=== PATIENT | male | born 1985 | race Caucasian/White ===

== ENCOUNTER 2018-03-06 16:01 | Emergency (ER) | payer MEDICARE, MEDICAID ==
--- NOTE | 2018-03-06 20:45 | ED ---
GI/ HPI - HPI Summary HPI Summary: Patient is a 32 y/o M w/ c/o rectal bleeding for the past three days. Blood is described as bright red. He reports PMHx of diabetes, HTN, HLD. Patient does not believe he is on any blood thinners. He reports that he has cardiac stents. PMHx of hemorrhoids is denied. On triage, pain is denied, nothing is noted to aggravate/alleviate Sx. Home medications and allergies reviewed. - History of Current Complaint Chief Complaint: EDRectalPain Time Seen by Provider: 03/06/18 20:00 Stated Complaint: RECTAL BLEED Hx Obtained From: Patient Onset/Duration: Started Days Ago - 3 days ago, Still Present Timing: Lasting Days - 3 days ago Current Severity: None - pain denied on triage Pain Intensity: 0 Associated Signs and Symptoms: Positive: Other: - rectal bleeding Aggravating Factor(s): Nothing Alleviating Factor(s): Nothing - Allergy/Home Medications Allergies/Adverse Reactions: Allergies Allergy/AdvReac Type Severity Reaction Status Date / Time No Known Allergies Allergy Verified 06/10/12 15:13 PMH/Surg Hx/FS Hx/Imm Hx Endocrine/Hematology History: Reports: Hx Diabetes Cardiovascular History: Reports: Hx Hypertension, Other Cardiovascular Problems/ Disorders - HLD Infectious Disease History: No Infectious Disease History: Denies: Traveled Outside the [place] in Last 30 Days - Family History Known Family History: Negative: Blood Disorder - Social History Alcohol Use: None Substance Use Type: Reports: None Review of Systems Negative: Fever - on vitals, temp is 97.9 F Positive: other - rectal bleeding All Other Systems Reviewed And Are Negative: Yes Physical Exam - Summary Physical Exam Summary: VITAL SIGNS: Reviewed. GENERAL: Patient is a well-developed and morbidly obese male who is lying comfortable in the stretcher. Patient is not in any acute respiratory distress. HEAD AND FACE: No signs of trauma. No ecchymosis, hematomas or skull depressions. No sinus tenderness. EYES: PERRLA, EOMI x 2, No injected conjunctiva, no nystagmus. EARS: Hearing grossly intact. Ear canals and tympanic membranes are within normal limits. MOUTH: Oropharynx within normal limits. NECK: Supple, trachea is midline, no adenopathy, no JVD, no carotid bruit, no c- spine tenderness, neck with full ROM. CHEST: Symmetric, no tenderness at palpation LUNGS: Clear to auscultation bilaterally. No wheezing or crackles. CVS: Regular rate and rhythm, S1 and S2 present, no murmurs or gallops appreciated. ABDOMEN: Soft, non-tender. No signs of distention. No rebound no guarding, and no masses palpated. Bowel sounds are normal. EXTREMITIES: FROM in all major joints, no edema, no cyanosis or clubbing. NEURO: Alert and oriented x 3. No acute neurological deficits. Speech is normal and follows commands. SKIN: Dry and warm RECTAL EXAM: no masses, no tenderness, normal rectal tone, tinge of blood Triage Information Reviewed: Yes Vital Signs On Initial Exam: Initial Vitals Temp Pulse Resp BP Pulse Ox 97.9 F 86 16 134/95 95 03/06/18 16:30 03/06/18 16:30 03/06/18 16:30 03/06/18 16:30 03/06/18 16:30 Vital Signs Reviewed: Yes Diagnostics - Vital Signs Vital Signs Temp Pulse Resp BP Pulse Ox 03/06/18 20:00 86 94 03/06/18 19:55 86 127/87 96 03/06/18 19:09 97.9 F 83 18 129/78 97 03/06/18 16:30 97.9 F 86 16 134/95 95 - Laboratory Result Diagrams: 03/06/18 20:39 03/06/18 20:39 Lab Statement: Any lab studies that have been ordered have been reviewed, and results considered in the medical decision making process. Re-Evaluation - Re-Evaluation First Eval Re-Evaluation Time: 22:40 Comment: Discussed results of labs with patient. Patient will be discharged to home, follow up care plan was discussed. He understands and is agreeable with this plan. GIGU Course/Dx - Course Assessment/Plan: Patient is a 32 y/o M w/ c/o rectal bleeding for the past three days. Blood is described as bright red. He reports PMHx of diabetes, HTN, HLD. Patient does not believe he is on any blood thinners. He reports that he has cardiac stents. PMHx of hemorrhoids is denied. Pain is denied. Patient is morbidly obese. RECTAL EXAM: no masses, no tenderness, normal rectal tone, tinge of blood. No other abnormal findings on PE. Blood was obtained. H&H was normal, patient is hemodynamically stable. Patient was discharged to home and instructed to follow up with manufacturing we[facility]. Rectal bleeding is most likely secondary to hemorrhoids, but patient is referred to manufacturing [facility] to rule out other possible causes. He understands and is agreeable with this plan. Dx of rectal bleeding. - Diagnoses Provider Diagnoses: Rectal bleeding Discharge - Sign-Out/Discharge Documenting (check all that apply): Patient Departure - discharge - Discharge Plan Condition: Stable Disposition: HOME Patient Education Materials: Rectal Bleeding (ED) Referrals: Ham Tilley MD [Primary Care Provider] - Bharat Garcia MD [Medical Doctor] - 2 Days Additional Instructions: RETURN TO THE EMERGENCY DEPARTMENT FOR CHANGING OR WORSENING SYMPTOMS. FOLLOW UP WITH INFANTRY OFFICER UP IN 1-2 DAYS. - Attestation Statements Document Initiated by Scribe: Yes Documenting Scribe: Jaquan Arguelles Provider For Whom Aimeee is Documenting (Include Credential): Ben Rosenberg MD Scribe Attestation: Jaquan Avila , scribed for Ben Rosenberg MD on 03/07/18 at 0023.
[2018-03-06 20:48] LABS: ABS Basophils 0 10^3/ul (0-0.2); ABS Eosinophils 0.2 10^3/ul (0-0.6); ABS Monocytes 0.6 10^3/ul (0-0.8); ABS Nucleated RBC 0 10^3/ul; Eosinophil % 2.2 % (0-6); Hematocrit 42 % (42-52); Hemoglobin 14.8 g/dl (14.0-18.0); Lymphocyte % 34.5 % (25-47); Mean Corpuscular HGB Conc 35 g/dl (31-36); Mean Corpuscular Hemoglobin 28 pg (27-31); Mean Corpuscular Volume 81 fL (80-94); Mean Platelet Volume 7.5 um3 (7.4-10.4); Nucleated Red Blood Cells % 0; Platelet Count 266 10^3/ul (150-450); Red Blood Count 5.25 10^6/ul (4.00-5.40); Red Cell Distribution Width 13 % (10.5-15); White Blood Count 8.8 10^3/ul (3.5-10.8)
[2018-03-06 21:07] LABS: EGFR Non-African American 96.6 (>60)
[2018-03-06 21:09] LABS: INR 0.88 (0.77-1.02)
[2018-03-06 23:05] VITALS: BP 135/90
== END 2018-03-06 23:06 | disposition home or self-care (01) ==
LOC: ED 16:01
DX: K62.5 Hemorrhage of anus and rectum (principal); I10 Essential (primary) hypertension; Z95.5 Presence of coronary angioplasty implant and graft
CPT/HCPCS: 36415; 80053; 85025; 85610; 85730; 86850; 86900; 86901; 99283

== ENCOUNTER 2022-11-06 14:19 | Inpatient (IN) ==
[2022-11-06] MEDS ORDERED: NS 0.9% 1000 ml BAG 1,000 ML IV ONE (14:27)
[2022-11-06 16:10] LABS: Hematocrit 46.1 % (38-53); Hemoglobin 14.1 g/dL (13.2-16.3); Mean Corpuscular Hemoglobin 23.7 pg (27-33); Mean Corpuscular Hgb Conc 30.6 g/dL (31-36); Mean Corpuscular Volume 77.5 fL (80-97); Mean Platelet Volume 7.7 fL (7.5-11.2); Platelet Count 397 10^3/uL (150-450); Red Blood Count 5.95 10^6/uL (4.06-5.63); Red Cell Distribution Width 16.8 % (12-17)
[2022-11-06 16:21] LABS: ABS Basophils 0.1 10^3/uL (0.0-0.1); ABS Lymphocytes 1.6 10^3/uL (1.0-4.8); ABS Monocytes 1.4 10^3/uL (0.0-1.1); ABS Nucleated RBC 0.01 10^3/ul; Lymphocyte % 7.2 %
[2022-11-06 16:24] LABS: High Sens Troponin Baseline 5 pg/mL (<20)
[2022-11-06 16:34] LABS: ALT 11 U/L (7-52); AST 16 U/L (13-39); Albumin/Globulin Ratio 1.9 (1-3); Alkaline Phosphatase 90 U/L (35-149); Blood Urea Nitrogen 28 mg/dL (6-24); C Reactive Protein 9.49 mg/L (<8.01); Calcium 9.3 mg/dL (8.6-10.3); Chloride 93 mmol/L (101-111); Creatinine, Serum 1.55 mg/dL (0.67-1.17); Globulin 2.7 g/dL (2-4); Glucose 282 mg/dL (70-100); Lipase 37 U/L (11.0-82.0); Magnesium 2.3 mg/dL (1.9-2.7); Potassium 5.3 mmol/L (3.5-5.0); Sodium 129 mmol/L (135-145); Total Protein 7.7 g/dL (6.4-8.9)
[2022-11-06 16:37] LABS: CO2 Carbon Dioxide < 7 mmol/L (22-32)
[2022-11-06 17:01] LABS: PO2 Arterial 131 mmHg (80-100)
[2022-11-06 17:02] LABS: PCO2 Arterial <20 mmHg (35-45)
[2022-11-06] MEDS ORDERED: Dextrose 50% Syringe 50 ml 25 GM/50 ML SYRINGE IV PUSH PRN (17:16)
[2022-11-06] MEDS ORDERED: NORMOSOL-R pH 7.4 1000 mL BAG 1,000 ML IV ONE (17:16)
[2022-11-06 17:23] LABS: Acetaminophen < 15 mcg/mL; Salicylate < 2.50 mg/dL (<30)
[2022-11-06 17:34] LABS: High Sensitivity Troponin 1 Hr 4 pg/mL (<20)
[2022-11-06] MEDS ORDERED: Insulin Infusion 100unit/100mL 100 UNIT/100 ML BAG IV SCH (18:00)
[2022-11-06] MEDS ORDERED: D5NS 0.9% 1000 ml BAG 1,000 ML IV SCH (18:00)
[2022-11-06] MEDS ORDERED: D5W 1/2 NS 1000 ml BAG 1,000 ML IV SCH ×2 (18:00→20:00)
[2022-11-06 18:30] LABS: Phosphorus 6.7 mg/dL (2.5-5.0)
[2022-11-06 18:46] LABS: TSH Ultra Thyroid Stim Horm 0.88 mcIU/mL (0.34-5.60)
[2022-11-06] MEDS ORDERED: NORMOSOL-R pH 7.4 1000 mL BAG 1,000 ML IV SCH (19:00)
[2022-11-06] MEDS: D5W 1/2 NS 1000 ml BAG 1,000 ML IV SCH (19:34)
[2022-11-06 19:49] LABS: Blood Urea Nitrogen 28 mg/dL (6-24); Calcium 7.2 mg/dL (8.6-10.3); Chloride 98 mmol/L (101-111); Creatinine, Serum 1.23 mg/dL (0.67-1.17); Glucose 215 mg/dL (70-100); Magnesium 2.4 mg/dL (1.9-2.7); Phosphorus 4.9 mg/dL (2.5-5.0); Potassium 4.9 mmol/L (3.5-5.0); Sodium 132 mmol/L (135-145); eGFR CKD-EPI 76.6 (>60)
[2022-11-06 19:51] LABS: CO2 Carbon Dioxide < 7 mmol/L (22-32)
[2022-11-06 19:56] LABS: High Sensitivity Troponin 3 Hr 3 pg/mL (<20)
[2022-11-06 20:17] LABS: PO2 Arterial 157 mmHg (80-100)
[2022-11-06 20:18] LABS: PCO2 Arterial <20 mmHg (35-45)
[2022-11-06 21:56] LABS: HIV 4th Generation Nonreactive (Nonreactive)
[2022-11-06 22:32] LABS: Urine Appearance Clear; Urine Bilirubin Negative (Negative); Urine Blood 2+ (Negative); Urine Color Yellow; Urine Glucose 3+(>=500 mg/dL) (Negative); Urine Ketones 2+ (Negative); Urine Nitrite Negative (Negative); Urine Protein 2+(100 mg/dL) (Negative); Urine Specific Gravity 1.017 (1.002-1.030); Urine Urobilinogen Negative (Negative)
[2022-11-06 22:40] LABS: Urine Bacteria Absent (Absent); Urine Red Blood Cell Trace(0-2/hpf) (Absent); Urine Squamous Epithelial Cell Present (Absent); Urine White Blood Cell Trace(0-5/hpf) (Absent)
[2022-11-06 22:48] LABS: Urine Benzodiazepine Screen None Detected (None Detect); Urine Cannabinoids Screen None Detected (None Detect); Urine Opiates Screen None Detected (None Detect)
[2022-11-07] MEDS: Insulin Infusion 100unit/100mL 100 UNIT/100 ML BAG IV SCH ×2 (00:20→13:59)
[2022-11-07] MEDS: D5W 1/2 NS 1000 ml BAG 1,000 ML IV SCH ×2 (00:48→05:52)
[2022-11-07 00:52] LABS: PO2 Arterial 105 mmHg (80-100)
[2022-11-07 00:53] LABS: PCO2 Arterial <20 mmHg (35-45)
[2022-11-07 01:14] LABS: Blood Urea Nitrogen 33 mg/dL (6-24); Calcium 8.3 mg/dL (8.6-10.3); Chloride 100 mmol/L (101-111); Creatinine, Serum 1.29 mg/dL (0.67-1.17); Glucose 181 mg/dL (70-100); Sodium 128 mmol/L (135-145); eGFR CKD-EPI 72.3 (>60)
[2022-11-07 01:19] LABS: Anion Gap 20 mmol/L (2-16); CO2 Carbon Dioxide 8 mmol/L (22-32)
[2022-11-07] MEDS ORDERED: NS 0.9% 1000 ml BAG 1,000 ML IV ONE ×2 (02:04→03:41)
[2022-11-07 02:11] LABS: Magnesium 1.7 mg/dL (1.9-2.7); Potassium Redraw 3.2 mmol/L (3.5-5.0)
[2022-11-07 02:17] LABS: Phosphorus 1.9 mg/dL (2.5-5.0)
[2022-11-07] MEDS ORDERED: Magnesium Sulfate 2 gm BAG 2 GM/50 ML BAG IVPB ONE (02:48)
[2022-11-07] MEDS ORDERED: Potassium & Sodium Phos 250 mg = 1 PACKET PO ONE (02:49)
[2022-11-07] MEDS: KCL 20 MEQ/100 ML IVPREMIX 20 MEQ/100 ML BAG IV SCH ×4 (03:32→22:14)
[2022-11-07 04:03] LABS: PCO2 Arterial 21 mmHg (35-45); PO2 Arterial 107 mmHg (80-100)
[2022-11-07 04:58] LABS: Hematocrit 34.6 % (38-53); Hemoglobin 11.1 g/dL (13.2-16.3); Mean Corpuscular Hemoglobin 24.2 pg (27-33); Mean Corpuscular Volume 75.5 fL (80-97); Mean Platelet Volume 7.1 fL (7.5-11.2); Platelet Count 232 10^3/uL (150-450); Red Blood Count 4.58 10^6/uL (4.06-5.63); Red Cell Distribution Width 16.6 % (12-17); White Blood Count 15.2 10^3/uL (3.6-10.2)
[2022-11-07] MEDS ORDERED: Vancomycin 1,000 MG in NS 0.9% 250 ml 250 ML IVPB ONE (05:04)
[2022-11-07] MEDS ORDERED: Norepinephrine IV 4 MG in NS 0.9% 250 ml 246 ML IV SCH (05:30)
[2022-11-07 05:33] LABS: Magnesium 2.5 mg/dL (1.9-2.7); Potassium 4.1 mmol/L (3.5-5.0)
[2022-11-07 05:40] LABS: Creatinine, Serum 1.18 mg/dL (0.67-1.17); HDL Cholesterol 32.4 mg/dL; Phosphorus 2.1 mg/dL (2.5-5.0); eGFR CKD-EPI 80.5 (>60)
[2022-11-07 05:51] LABS: Polychromasia 1+
[2022-11-07] MEDS ORDERED: Norepinephrine 16MCG/ML BAG NS 4,000 MCG/250 ML BAG IV SCH (06:00)
[2022-11-07] MEDS ORDERED: Vancomycin per Pharmacy 1 EA NOTE FOLLOW UP SCH (06:00)
[2022-11-07 06:22] LABS: ABS Basophils 0.1 10^3/uL (0.0-0.1); ABS Lymphocytes 1.6 10^3/uL (1.0-4.8); ABS Monocytes 1.6 10^3/uL (0.0-1.1); ABS Neutrophils 11.8 10^3/uL (1.5-7.6); ABS Nucleated RBC 0.01 10^3/ul; Lymphocyte % 10.8 %; Nucleated Red Blood Cells % 0.1 /100 WBC (0.0-0.4)
[2022-11-07] MEDS: Cefepime 2 GM in Dextrose 2 GM/50 ML BAG IV SCH ×2 (06:31→17:31)
[2022-11-07] MEDS ORDERED: Potassium Phosphate IV 15 MMOL in NS 0.9% 250 ml 250 ML IVPB ONE ×2 (07:00→19:26)
[2022-11-07] MEDS ORDERED: Norepinephrine 16MCG/ML BAGD5W 4,000 MCG/250 ML BAG IV SCH ×2 (08:00→09:44)
[2022-11-07] MEDS ORDERED: D5W 1/2 NS 1000 ml BAG 1,000 ML IV SCH (09:37)
[2022-11-07 11:31] LABS: Calcium 8.1 mg/dL (8.6-10.3); Creatinine, Serum 1.07 mg/dL (0.67-1.17); Magnesium 2.1 mg/dL (1.9-2.7); Phosphorus 2.3 mg/dL (2.5-5.0); Potassium 4.2 mmol/L (3.5-5.0); eGFR CKD-EPI 90.5 (>60)
[2022-11-07] MEDS: Insulin GLARGINE 100 un/ml 10 ml VIAL SUBCUT SCH (11:44)
[2022-11-07 14:13] LABS: Calcium 7.3 mg/dL (8.6-10.3); Creatinine, Serum 0.92 mg/dL (0.67-1.17); Magnesium 1.9 mg/dL (1.9-2.7); Phosphorus 2.2 mg/dL (2.5-5.0); eGFR CKD-EPI 108.5 (>60)
[2022-11-07 17:58] LABS: Calcium 7.5 mg/dL (8.6-10.3); Creatinine, Serum 0.77 mg/dL (0.67-1.17); Magnesium 1.9 mg/dL (1.9-2.7); Phosphorus 1.4 mg/dL (2.5-5.0); Potassium 3.4 mmol/L (3.5-5.0); eGFR CKD-EPI 116.8 (>60)
[2022-11-07] MEDS ORDERED: Dextrose 50% Syringe 50 ml 25 GM/50 ML SYRINGE IV PUSH PRN (18:08)
[2022-11-07] MEDS: Vancomycin 1,250 MG in NS 0.9% 250 ml 250 ML IVPB SCH (18:18)
[2022-11-07] MEDS ORDERED: Potassium Acid Phos 500 mg TAB PO ONE (18:21)
[2022-11-08 02:32] LABS: Creatinine, Serum 0.75 mg/dL (0.67-1.17); Magnesium 2.1 mg/dL (1.9-2.7); Phosphorus 2.2 mg/dL (2.5-5.0); Potassium 3.9 mmol/L (3.5-5.0); eGFR CKD-EPI 117.7 (>60)
[2022-11-08 05:25] LABS: Hematocrit 31.4 % (38-53); Hemoglobin 10.4 g/dL (13.2-16.3); Mean Corpuscular Hgb Conc 33.2 g/dL (31-36); Mean Corpuscular Volume 72.3 fL (80-97); Mean Platelet Volume 6.8 fL (7.5-11.2); Platelet Count 199 10^3/uL (150-450); Red Blood Count 4.34 10^6/uL (4.06-5.63); Red Cell Distribution Width 16.6 % (12-17)
[2022-11-08 05:39] LABS: ABS Basophils 0.1 10^3/uL (0.0-0.1); ABS Lymphocytes 1.8 10^3/uL (1.0-4.8); ABS Monocytes 0.8 10^3/uL (0.0-1.1); ABS Neutrophils 5.4 10^3/uL (1.5-7.6); Eosinophil % 0.3 %; Lymphocyte % 21.9 %; Microcytosis 2+
[2022-11-08] MEDS: Cefepime 2 GM in Dextrose 2 GM/50 ML BAG IV SCH (05:54)
[2022-11-08] MEDS: Vancomycin 1,250 MG in NS 0.9% 250 ml 250 ML IVPB SCH (05:54)
[2022-11-08 06:00] LABS: Calcium 8.1 mg/dL (8.6-10.3); Creatinine, Serum 0.75 mg/dL (0.67-1.17); Magnesium 2.1 mg/dL (1.9-2.7); Phosphorus 2.1 mg/dL (2.5-5.0); Potassium 3.8 mmol/L (3.5-5.0); eGFR CKD-EPI 117.7 (>60)
[2022-11-08] MEDS: Insulin GLARGINE 100 un/ml 10 ml VIAL SUBCUT SCH (08:11)
[2022-11-08 12:50] VITALS: BP 121/58
[2022-11-08] MEDS ORDERED: Vancomycin Trough Check NOTE FOLLOW UP ONE (17:30)
[2022-11-11 16:39] LABS: Anti GAD 65 Antibody 0.07 nmol/L (<= 0.02)
== END 2022-11-08 17:59 | disposition home or self-care (01) | DRG 637 ==
LOC: ED 14:19 → SUATTDRO 17:14 → EDHOLD 17:14 → ICU 19:24
PROVIDERS: ADMIT Internal Medicine Critical Care Medicine; ATTEND Internal Medicine